=== PATIENT | male | born 1950 | race Caucasian/White ===

== ENCOUNTER 2024-04-25 17:33 | Emergency (ER) | payer OTHER ==
[2024-04-25] MEDS ORDERED: Ketorolac Tromethamine 30 MG (1 mL) VIAL ONE (19:11)
[2024-04-25] MEDS ORDERED: Diazepam 10 MG/2 ML SYRINGE ONE (19:11)
== END 2024-04-25 20:05 | disposition home or self-care (01) ==
LOC: CSHERS 17:33
DX: M54.2 Cervicalgia (principal); I10 Essential (primary) hypertension; E11.9 Type 2 diabetes mellitus without complications; Z55.0 Illiteracy and low-level literacy
CPT/HCPCS: 72125; J1885; J3360; 96372

== ENCOUNTER 2025-07-21 12:52 | Outpatient (CLI) | payer OTHER | END 2025-07-21 12:53 | disposition home or self-care (01) | LOC: CSHMRI 12:52 | PROVIDERS: ATTEND Family Medicine | DX: Z86.73 Personal history of transient ischemic attack (TIA), and cerebral infarction without residual deficits (principal); R41.82 Altered mental status, unspecified; R90.82 White matter disease, unspecified | CPT/HCPCS: 70551 ==